=== PATIENT | female | born 1965 | race Asian ===

== ENCOUNTER 2016-07-22 17:42 | Inpatient (IN) | payer BC, OTHER ==
[~2016-07-22] VITALS: Ht 152.4 cm; Wt 52.2 kg
[2016-07-22 17:45] VITALS: BP 109/55; PULSE 88; RESP 18; TEMP 98.5; O2SAT 96
[2016-07-22] MEDS ORDERED: GLUCAGON,HUMAN RECOMBINANT 1 MG VIAL IM ONE ×2 (18:00→19:00)
--- NOTE | 2016-07-22 18:00 | NUR ---
Patient to ER ngo 1 to [facility] for evaluation. Side rails up. Assumed care of patient. Patient states that she is unable to swallow.
--- NOTE | 2016-07-22 18:10 | NUR ---
ER Dr. Diggs at bedside examining patient.
--- NOTE | 2016-07-22 19:00 | NUR ---
Attempted PO challenge. Patient immediantly spit out water. Unable to tolerate.
[2016-07-22] MEDS ORDERED: NACL 0.9% 1,000 ML IV ONE (19:15)
[2016-07-22 19:23] LABS: HEMATOCRIT 41.1 % (36-48); HEMOGLOBIN 13.7 g/dL (12.0-16.0); MEAN CORPUSCULAR HEMOGLOBIN 30 pg (27-31); MEAN CORPUSCULAR HGB CONC 33 % (32-36); MEAN CORPUSCULAR VOLUME 89 fL (79.0-98.0); PLATELET COUNT (AUTO) 217 K/uL (130-430); RED CELL DISTRIBUTION WIDTH 12.2 % (9.0-15.0); WHITE BLOOD COUNT (AUTO) 23.1 K/uL (4.8-10.8)
[2016-07-22 19:38] LABS: CALCIUM 8.9 mg/dL (8.4-11.0); CREATININE 0.69 mg/dL (0.55-1.30); POTASSIUM 3.4 mmol/L (3.5-5.1)
[2016-07-22 19:43] LABS: ALBUMIN 3.7 g/dL (3.4-4.8); TOTAL BILIRUBIN 1.1 mg/dL (0.0-1.0)
--- NOTE | 2016-07-22 19:43 | NUR ---
Received patient report. Assumed care. Patient on [place]. States that Thursday something got stuck in her throat, states that she went to [facility] and they did nothing for her. Patient points to mid neck as the area where the obstruction is. Unable to hold anything down. O2 room air 98%
--- NOTE | 2016-07-22 19:45 | NUR ---
# 20 gauge angiocath placed to LEFT AC. Use of asceptic technique. Opsite placed over site. Blood return noted. Flushed with 10 cc of normal saline. No evidence of infiltration noted. Patient tolerated well.
--- NOTE | 2016-07-22 20:12 | NUR ---
Medication reconciliation - states no home meds
[2016-07-22] MEDS ORDERED: D5NS 1,000 ML IV SCH (20:16)
--- NOTE | 2016-07-22 20:19 | NUR ---
Patient will be admitted to care of DR MUELLER. Admitted to [facility] IN unit. Will go to room 130. Belongings list completed. Summary report printed. Report given to RN.
--- NOTE | 2016-07-22 20:20 | NUR ---
Call placed for Dr Mendez per Dr Winter request
--- NOTE | 2016-07-22 20:25 | NUR ---
Transfer to [facility]. IV present no sign or symptom of infiltration.
[2016-07-22 20:30] VITALS: BP 96/60; PULSE 90; RESP 20; TEMP 99.3; O2SAT 98
--- NOTE | 2016-07-22 20:30 | NUR ---
ADMISSION NOTE Received patient from ER via gurney. Patient admitted with diagnosis of Dysphagia. Patient is awake, alert, oriented X 3. Patient oriented to hospital room, call light, toileting, pain management and safety-teach back done. Patient informed that Pham will be primary nurse and that their room number is [id number]. Personal belongings checked and Belongings List documented. Call light within reach.
--- NOTE | 2016-07-22 20:34 | NUR ---
Dr Anusha licea for Dr Mendez called back. Received infor about the patient. States he will arrange procedure in the AM
[2016-07-22 20:36] LABS: ATYPICAL LYMPHOCYTES % 0 % (0-0); BAND % (MANUAL) 0 % (0-6); BASOPHILS % (MANUAL) 0 % (0-2); EOSINOPHILS % (MANUAL) 0 % (0-7); LYMPHOCYTES % (MANUAL) 10 % (20-46); MONOCYTES % (MANUAL) 5 % (0-11)
[2016-07-22] MEDS ORDERED: cefTRIAXone 1 GM in D5W 50 ML IV SCH (21:00)
[2016-07-22] MEDS ORDERED: MORPHINE 4 MG/ML INJ. SYRINGE IVP PRN (21:00)
[2016-07-22] MEDS ORDERED: ONDANSETRON HCL 4 MG/2 ML VIAL IVP PRN (21:00)
[2016-07-22] MEDS ORDERED: MORPHINE 2 MG/ML INJ. SYRINGE IVP PRN (21:00)
[2016-07-22] MEDS ORDERED: ACETAMINOPHEN 325 MG TABLET PO PRN (21:00)
--- NOTE | 2016-07-22 21:00 | NUR ---
er admission received patient via gurney from er. dx dysphagia. pt appears to be sleeping. opens eyes to soft touch. pt is npo. possible egd tomorrow. consult with dr kennedy/madeleine. pt ambulates to bathroom with steady gait. comm board updated. safety precautions in place.
[2016-07-22] MEDS ORDERED: cefTRIAXone 1 GM IVPB PREMIX 50 ML IV ONE (22:33)
--- NOTE | 2016-07-22 22:57 | NUR ---
BLOOD CULTURE UNCOLLECTED CALLED LAB/ BLOOD CULTURE TO BE COLLECTED /WILL THEN START IV ANTIBIOTIC ORDERED
[2016-07-22] MEDS: D5NS 1,000 ML IV SCH (23:24)
[2016-07-23] VITALS (7 sets, daily range): BP systolic 88–123; BP diastolic 45–72; PULSE 71–98; RESP 16–20; TEMP 97–98.3; O2SAT 95–99
--- NOTE | 2016-07-23 06:06 | NUR ---
resting pt continues to sleep. no s/s resp distress. all needs met at this time.
[2016-07-23] MEDS ORDERED: MIDAZOLAM HCL 5 MG/5 ML VIAL ONE (09:34)
[2016-07-23] MEDS ORDERED: SIMETHICONE 40 MG/0.6 ML ML ONE (09:34)
[2016-07-23] MEDS: MIDAZOLAM HCL 5 MG/5 ML VIAL ONE ×3 (10:00→10:07)
[2016-07-23] MEDS: MEPERIDINE HCL/PF 100 MG/ML AMP ONE ×2 (10:00→10:07)
--- NOTE | 2016-07-23 10:00 | NUR ---
PT RESTING IN BED, TAKEN TO OR FOR EGD BY W/C. NO DISTRESS, NO C/O PAIN. PROCEDURE WILL BE EXPLAINED BY DOCTOR.
--- NOTE | 2016-07-23 10:57 | NUR ---
PT CAME BACK FROM PROCEDURE, RN GAVE REPORT, PT RESTING IN BED NO C/O PAIN, CALL LIGHT IN REACH, WILL CONTINUE TO MONITOR. RN INFORMED ME PT IS ABLE TO EAT.
[2016-07-23] MEDS ORDERED: PANTOPRAZOLE SODIUM 40 MG TAB PO ONE (11:30)
--- NOTE | 2016-07-23 11:47 | NUR ---
Consult Called Reason for consultation: Leukocytosis Was consult called: Yes Person who was notified: Juju Consulting Physician: JOHNNIE GIL MD Ordered by: Marielle Winter MD
[2016-07-23 12:20] LABS: CALCIUM 8.5 mg/dL (8.4-11.0); CREATININE 0.62 mg/dL (0.55-1.30); POTASSIUM 3.3 mmol/L (3.5-5.1)
[2016-07-23 12:25] LABS: ALBUMIN 2.9 g/dL (3.4-4.8); TOTAL BILIRUBIN 0.7 mg/dL (0.0-1.0); TOTAL PROTEIN, SERUM 6.7 g/dL (6.4-8.3)
--- NOTE | 2016-07-23 12:32 | NUR ---
PT EATING LUNCH, NO PROBLEMS SWALLOWING, NO C/O PAIN, CALL LIGHT IN REACH.
[2016-07-23 12:39] LABS: BASOPHILS % (AUTO) 0.2 % (0.0-2.0); EOSINOPHILS # (AUTO) 0.1 K/uL (0.0-0.4); HEMATOCRIT 34.5 % (36-48); HEMOGLOBIN 11.6 g/dL (12.0-16.0); LYMPHOCYTES # (AUTO) 2.1 K/uL (1.0-5.5); LYMPHOCYTES % (AUTO) 25.1 % (20.5-51.5); MEAN CORPUSCULAR HEMOGLOBIN 30 pg (27-31); MEAN CORPUSCULAR HGB CONC 34 % (32-36); MEAN CORPUSCULAR VOLUME 90 fL (79.0-98.0); MONOCYTES # (AUTO) 0.7 K/uL (0.0-1.0); MONOCYTES % (AUTO) 8.7 % (1.7-9.3); NEUTROPHILS # (AUTO) 5.5 K/uL (1.8-7.7); PLATELET COUNT (AUTO) 178 K/uL (130-430); RED BLOOD CELL COUNT(AUTO) 3.85 MIL/uL (4.2-6.2); RED CELL DISTRIBUTION WIDTH 11.9 % (9.0-15.0); WHITE BLOOD COUNT (AUTO) 8.4 K/uL (4.8-10.8)
--- NOTE | 2016-07-23 15:00 | NUR ---
PT HAS A ORDER FOR CT OF HEAD WITH CONTRAST, PT SIGNED CONSENT, ALL QUESTIONS ON FORM ANSWERED, NO DISTRESS, IVF INFUSING WELL, NO C/O PAIN, CALL LIGHT IN REACH.
--- NOTE | 2016-07-23 15:09 | NUR ---
PT TAKEN BY W/C TO HAVE CT SCAN WITH CONTRAST DONE.
[2016-07-23] MEDS ORDERED: IOHEXOL 100 ML IV ONE (15:10)
--- NOTE | 2016-07-23 18:07 | NUR ---
PT EATING DINNER, NO C/O PAIN, NO DISTRESS, AMBS WITH STEADY GAIT TO BR. WILL ENDORSE TO MACHINE BUILDER NURSE.
--- NOTE | 2016-07-23 19:21 | NUR ---
INITIAL ASSESSMENT: RECEIVE PT IN BED, AWAKE, ALERT AND ORIENTED X3, DENIES ANY DIFFICULTY OF SWALLOWING AT THIS TIME. NO SIGN OR SYMPTOMS OF CHOCKING OR ASPIRATION. NO DISTRESS, ON ROOM AIR, BREATHING EVEN AND NON LABORED, CHEST CLEAR, ABDOMEN SOFT AND NON DISTENDED, ACTIVE BOWEL SOUND THROUGHOUT ABDOMEN, DENIES ANY PAIN, NAUSEA AND VOMITING AT THIS TIME. VITAL STABLE, IV ON LEFT AC 20 G, INFUSING D5NS@ 100 ML/HR, INFUSING WELL, NO INFILTRATION NOTED, CALL LIGHT WITH IN REACH, SAFETY MEASURES IN PLACE, BED IN LOW POSITION AND LOCKED, WILL CONTINUE TO MONITOR.
[2016-07-23] MEDS: cefTRIAXone 1 GM IVPB PREMIX 50 ML IV SCH (20:53)
[2016-07-23] MEDS: D5NS 1,000 ML IV SCH (20:58)
--- NOTE | 2016-07-23 21:27 | NUR ---
ADMINISTERED MEDICATION: PT AWAKE, NO DISTRESS, ON ROOM AIR, BREATHING EVEN AND NON LABORED, DENIES ANY PAIN, NAUSEA AND VOMITING AT THIS TIME. VITAL STABLE, IV ON LEFT AC 20 G, INFUSING D5NS@ 100 ML/HR, INFUSING WELL, NO INFILTRATION NOTED, PT WITH GENERALIZED WEAKNESS, ABLE TO AMBULATE WITH STEADY GAIT. ADMINISTERED ALL ORDER MEDICATION, PT SWALLOW WELL, NO DIFFICULTIES, NO SIGN OR SYMPTOMS OF CHOCKING OR ASPIRATION. CALL LIGHT WITH IN REACH, SAFETY MEASURES IN PLACE, BED IN LOW POSITION AND LOCKED, WILL CONTINUE TO MONITOR.
[2016-07-24] MEDS: D5NS 1,000 ML IV SCH ×2 (03:00→21:16)
--- NOTE | 2016-07-24 03:10 | NUR ---
RN NOTE: PT SLEEPING, EASILY AWAKE, ON ROOM AIR, BREATHING EVEN AND NON LABORED, DENIES ANY PAIN, NAUSEA AND VOMITING AT THIS TIME. VITAL STABLE, IV ON LEFT AC 20 G, INFUSING D5NS@ 100 ML/HR, INFUSING WELL, NO INFILTRATION NOTED, PT WITH GENERALIZED WEAKNESS, ABLER TO AMBULATE WITH STEADY GAIT. CALL LIGHT WITH IN REACH, SAFETY MEASURES IN PLACE, BED IN LOW POSITION AND LOCKED, WILL CONTINUE TO MONITOR.
[2016-07-24 05:10] VITALS: BP 88/60; PULSE 68; RESP 16; TEMP 98.2; O2SAT 99
--- NOTE | 2016-07-24 05:38 | NUR ---
RN NOTE/HYGIENE CARE: PT SLEEPING, EASILY AWAKE, ON ROOM AIR, BREATHING EVEN AND NON LABORED, DENIES ANY PAIN, NAUSEA AND VOMITING AT THIS TIME. VITAL STABLE, IV ON LEFT AC 20 G, INFUSING D5NS@ 100 ML/HR, INFUSING WELL, NO INFILTRATION NOTED, PT WITH GENERALIZED WEAKNESS, ABLER TO AMBULATE WITH STEADY GAIT. HYGIENE CARE RENDERED, CALL LIGHT WITH IN REACH, SAFETY MEASURES IN PLACE, BED IN LOW POSITION AND LOCKED, WILL CONTINUE TO MONITOR.
--- NOTE | 2016-07-24 06:44 | NUR ---
CLOSING NOTE: PT SLEEPING, EASILY AWAKE, ON ROOM AIR, BREATHING EVEN AND NON LABORED, DENIES ANY PAIN, NAUSEA AND VOMITING AT THIS TIME. VITAL STABLE, IV ON LEFT AC 20 G, INFUSING D5NS@ 100 ML/HR, INFUSING WELL, NO INFILTRATION NOTED, PT WITH GENERALIZED WEAKNESS, ABLER TO AMBULATE WITH STEADY GAIT. ALL NEEDS ATTENDED THROUGHOUT SHIFT, CALL LIGHT WITH IN REACH, SAFETY MEASURES IN PLACE, BED IN LOW POSITION AND LOCKED, WILL ENDORSE TO AM NURSE.
[2016-07-24 08:00] VITALS: BP 89/54; PULSE 71; RESP 18; TEMP 96.7; O2SAT 92
--- NOTE | 2016-07-24 08:00 | NUR ---
INITIAL NOTES PT IN BED AWAKE, ALERT AND ORIENTED. DENIES ANY PAIN OR DISCOMFORT. AMBULATE TO THE BATHROOM WITH STEADY GAIT. IVF INFUSING WELL. ENC. TO CALL FOR HELP NEEDED. WILL MONITOR.
[2016-07-24] MEDS: PANTOPRAZOLE SODIUM 40 MG TAB PO SCH (09:53)
--- NOTE | 2016-07-24 11:00 | NUR ---
IN BED, RESTING. NO DISTRESS NOTED.
[2016-07-24 12:00] VITALS: BP 93/55; PULSE 65; RESP 15; TEMP 97; O2SAT 100
--- NOTE | 2016-07-24 15:00 | NUR ---
NOTES RESTING IN BED, DENIES ANY PAIN OR DISCOMFORT. NO DISTRESS NOTED.
[2016-07-24 16:00] VITALS: BP 91/64; PULSE 78; RESP 16; TEMP 97.6; O2SAT 97
--- NOTE | 2016-07-24 17:30 | NUR ---
PAGED PT WANTS TO GO HOME. DR. CARROLL COLINAYED PT TO GO HOME. WAITING FOR MD TO CALL BACK.
--- NOTE | 2016-07-24 18:00 | NUR ---
RE PAGED DR. MUELLER RE: PT WANTS TO GO HOME.
--- NOTE | 2016-07-24 18:24 | NUR ---
NOTES IN BED RESTING, DENIES ANY PAIN OR DISCOMFORT. STILL WAITING FOR BED AT THIS TIME. PT VERBALIZE UNDERSTANDING.
--- NOTE | 2016-07-24 18:26 | NUR ---
PT IN BED, RESTING. MADE AWARE THAT WERE STILL WAITING FOR DR. MUELLER TO CALL BACK. PT VERBALIZE UNDERSTANDING.
--- NOTE | 2016-07-24 19:20 | NUR ---
INITIAL NOTE Patient resting on the bed. No acute distress. Respiration even and unlabored. AO x 4. Skin warm and dry to touch. IV intact to left hand, no redness, no swelling, no drainage. On d5 NS at 100ml/hr, infusing well. Discussed the safety issue, use call light when need help, and plan of care, verbally understanding. Safety measure maintained. Call light within reached. Bed in low position, side rails up, bed alarm on. Will continue to monitor.
[2016-07-24 19:40] VITALS: BP 100/69; PULSE 78; RESP 18; TEMP 98.5; O2SAT 97
--- NOTE | 2016-07-24 20:50 | NUR ---
AMBULATED TO BATHROOM Ambulated patient to bathroom. No acute distress. Safety measure maintained. Call light within reached. Will continue to monitor.
[2016-07-24] MEDS: cefTRIAXone 1 GM IVPB PREMIX 50 ML IV SCH (21:15)
--- NOTE | 2016-07-24 22:10 | NUR ---
ROUND Patient resting on the bed with eyes closed. No acute distress. Respiration even and unlabored. Safety measure maintained. Call light within reached. Bed in low position, side rails up, bed alarm on. Will continue to monitor.
--- NOTE | 2016-07-25 00:40 | NUR ---
ROUND Patient sleeping comfortable. No acute distress. Safety measure maintained. Bed in low position, side rails up, bed alarm on. Call light within reached. Continue to monitor.
--- NOTE | 2016-07-25 02:00 | NUR ---
ROUND Patient sleeping comfortable. Respiration even and unlabored. Safety measure maintained. Bed in low position, side rails up, bed alarm on. Call light within reached. Continue to monitor.
--- NOTE | 2016-07-25 03:50 | NUR ---
ROUND Patient sleeping comfortable. Respiration even and unlabored. Call light within reached. Safety measure maintained. Bed in low position, side rails up, bed alarm on. Continue to monitor.
[2016-07-25 03:58] VITALS: BP 88/59; PULSE 74; RESP 18; TEMP 97.6; O2SAT 98
--- NOTE | 2016-07-25 05:30 | NUR ---
ROUND Patient sleeping comfortable. No acute distress. Respiration even and unlabored. Safety measure maintained. Bed in low position, side rails up, bed alarm on. Call light within reached. Continue to monitor.
--- NOTE | 2016-07-25 06:55 | NUR ---
CLOSING NOTE Patient resting on the bed. No acute distress. Respiration even and unlabored. IV intact to left hand, no redness, no swelling, no drainage. On D5 NS at 100ml/hr, infusing well. All needs met. Hourly rounding during shift. Assisted and ambulated to bathroom during shift. Safety measure maintained. Call light within reached. Bed in low position, side rails up, bed alarm on. Will endorse to morning shift nurse.
[2016-07-25] MEDS: D5NS 1,000 ML IV SCH (07:41)
--- NOTE | 2016-07-25 07:59 | NUR ---
AM ROUNDS: No s/s of distress noted. Will continue to monitor.
[2016-07-25 08:33] VITALS: BP 68/67; PULSE 77; RESP 20; TEMP 97.8; O2SAT 98
[2016-07-25] MEDS: PANTOPRAZOLE SODIUM 40 MG TAB PO SCH (08:35)
--- NOTE | 2016-07-25 10:05 | NUR ---
PATIENT RESTING: Patient resting quietly. No acute distress noted. Vital signs within normal range.
--- NOTE | 2016-07-25 10:07 | NUR ---
MD ROUNDS: Dr. Mendez in to see patient.
[2016-07-25 10:46] VITALS: BP 101/67; PULSE 74; RESP 20; TEMP 98; O2SAT 99
[2016-07-25 12:00] VITALS: BP 99/70; PULSE 69; RESP 20; TEMP 98.8; O2SAT 99
--- NOTE | 2016-07-25 12:05 | NUR ---
D/C Patient Patient given medication reconciliation form and D/C instructions. Exit Care provided. Patient verbalized understanding. MD discussed with patient the results and treatment provided. Ambulatory with steady gait for discharge to home. Patient in stable condition, ID band removed. IV catheter removed, intact and dressing applied, no active bleeding. Rx of protonix given. Patient educated on pain management. All belongings sent with patient.
== END 2016-07-25 12:05 | disposition home or self-care (01) | DRG 392 ==
LOC: SED 17:42 → SMU 20:16
PROVIDERS: ADMIT Internal Medicine Hospice and Palliative Medicine; ATTEND Internal Medicine Hospice and Palliative Medicine
PROC: 0D758ZZ Dilation of Esophagus, Via Natural or Artificial Opening Endoscopic (ICD-10-PCS; principal; 2016-07-23 12:00)
DX: K22.2 Esophageal obstruction (principal); D72.829 Elevated white blood cell count, unspecified; K20.9 Esophagitis, unspecified; R59.0 Localized enlarged lymph nodes; F17.210 Nicotine dependence, cigarettes, uncomplicated
CPT/HCPCS: 36415; 70491-TC; 71020-TC; 80053; 83036; 85007; 85025; 85027; 85610-TC; 85730-TC; 87040-TC; 96360; 96372; 99285; C1769; J0696; J1610; J2175; J2250; J7030; J7042; J7060; Q9967

== ENCOUNTER 2022-10-27 06:47 | Emergency (ER) | payer BC, OTHER ==
[~2022-10-27] VITALS: Ht 152.4 cm; Wt 56.7 kg
[2022-10-27 06:55] VITALS: BP_SYST 120
--- NOTE | 2022-10-27 06:58 | NUR ---
Patient triaged and placed in waiting room. VSS and patient appears in no acute distress at this time. Accompanied by SELF, awaiting available bed, and MD notified of need for MSE.
--- NOTE | 2022-10-27 07:21 | NUR ---
BROUGHT BACK TO BED #8 AND REPORT GIVEN TO NURSE. PT STATES SHE JUST URINATED BEFORE TRIAGE, WILL ATTEMPT TO URINATE SOON
--- NOTE | 2022-10-27 07:28 | NUR ---
PT ABLE TO VOID SMALL AMT OF URINE, SENT TO LAB.
--- NOTE | 2022-10-27 07:30 | NUR ---
PT BIB SELD C/O OF URINARY PAIN AND PELVIC PAIN. PT IS GCS 15 EYES OPEN SPONTANEOUS, AND ORIENTED TO PERSON, PLACE, TIME, SITUATION. PT DENIES ISSUES WITH THE EYES AND EARS. PT SKIN IS WARM AND INTACT. PT DENIES SOB, CHEST PAIN, AND N/V/D. PT HAS 7/10 PAIN AFTER URINATING ABDOMIN IS SLIGHTLY DISTNED. PT IN ROOM 8 ON THE MONITOR.
--- NOTE | 2022-10-27 07:45 | NUR ---
ER at bedside examining patient.
[2022-10-27 08:27] LABS: BILIRUBIN,URINE NEGATIVE (NEGATIVE); BLOOD, URINE 3+ (NEGATIVE); CLARITY/URINE SL CLOUDY (CLEAR); COLOR,URINE YELLOW (YELLOW); GLUCOSE,URINE NEGATIVE (NEGATIVE); KETONES,URINE TRACE (NEGATIVE); LEUKOCYTE ESTERASE ,URINE 2+ (NEGATIVE); NITRITE, URINE NEGATIVE (NEGATIVE); PH,URINE 5.5 (5.0-8.0); PROTEIN URINE 1+ (NEGATIVE)
[2022-10-27] MEDS ORDERED: KETOROLAC TROMETHAMINE 30 MG VIAL IM ONE (08:30)
[2022-10-27] MEDS ORDERED: IBUP-1969 PO (08:42)
[2022-10-27] MEDS ORDERED: CEPH-548 PO (08:42)
[2022-10-27] MEDS ORDERED: PHEN-726 PO (08:42)
[2022-10-27 09:02] LABS: BACTERIA,URINE FEW /HPF (None Seen); RBC,URINE 20-50 /HPF (0-3); WBC,URINE 20-50 /HPF (0-3)
--- NOTE | 2022-10-27 09:04 | NUR ---
Patient given written and verbal discharge instructions and verbalizes understanding. ER MD discussed with patient the results and treatment provided. Patient in stable condition. Rx of CEPHALEXIN, IBUPROFEN, AND PHENAZOPYRIDE given. Patient educated on URINARY management and to follow up with PMD. Pain Scale 5 OUT OF 10. Opportunity for questions provided and answered. Medication side effect fact sheet provided.
[2022-10-27 09:10] VITALS: BP_SYST 132
== END 2022-10-27 09:04 | disposition home or self-care (01) ==
LOC: SED 06:47
DX: N39.0 Urinary tract infection, site not specified (principal); R30.0 Dysuria; R35.0 Frequency of micturition; Z79.899 Other long term (current) drug therapy
CPT/HCPCS: 99283; 81000; 96372; J1885